=== PATIENT | female | born 1975 | race American Indian/Alaskan Native ===

== ENCOUNTER 2017-03-13 12:23 | Emergency (ER) | payer OTHER ==
[2017-03-13 15:05] VITALS: BP 114/90
[2017-03-13] MEDS ORDERED: TORADOL IM ONE (16:49)
--- NOTE | 2017-03-13 17:45 | Cat Scan Report ---
FINAL REPORT PROCEDURE: CT CERVICAL SPINE WO CON TECHNIQUE: Computerized tomography of the cervical spine was performed from the skull base to T1 without contrast material. HISTORY: cervical spinal tenderness COMPARISON: No prior studies are available for comparison. FINDINGS: Slight reversal of cervical lordosis is probably positional. Mild arthritic changes are seen being greatest at C5-6. Uncovertebral osteophytes cause mild central canal and neural foraminal narrowing at C5-6. No subluxation is seen. No prevertebral edema is seen. No fracture is seen. Likely reactive lymph nodes are seen in the neck. Mild tonsillar prominence is seen. IMPRESSION: No fracture is seen. Possible changes of tonsillitis are seen with reactive lymph nodes in the neck.
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
== END 2017-03-13 19:01 | disposition home or self-care (01) ==
LOC: ED 12:23
DX: S16.1XXA Strain of muscle, fascia and tendon at neck level, initial encounter (principal); S13.4XXA Sprain of ligaments of cervical spine, initial encounter; V49.59XA Passenger injured in collision with other motor vehicles in traffic accident, initial encounter; Y93.9 Activity, unspecified; Y92.9 Unspecified place or not applicable; Y99.9 Unspecified external cause status
CPT/HCPCS: 72125; 96372; 99284; J1885